=== PATIENT | male | born 1970 | race Caucasian/White ===

== ENCOUNTER 2018-09-22 15:01 | Emergency (ER) | payer OTHER, SELFPAY ==
[2018-09-22 15:03] VITALS: BP 137/86; PULSE 90; RESP 17; TEMP 37; O2SAT 98; BMI 24.1
[2018-09-22] MEDS: 0.9% Normal Saline 1,000 ML 1000 ML IV (15:49)
[2018-09-22] MEDS: Mag Hydrox/Al Hydrox/Simeth 30 ML UDC PO (15:54)
[2018-09-22 15:57] LABS: Absolute Lymphocyte Count 0.75 X10^3/ul (0.83-4.51); Absolute Neutrophil Count 3.4 X10^3/uL (2.0-7.7); Hematocrit 50.1 % (40-54); Hemoglobin 17.3 g/dl (13.0-16.5); Lymphocyte # 0.75 X10^3/ul (4.0); Lymphocyte % 15.8 % (19-41); Mean Corp Hgb Conc 34.5 g/gl (32-36); Mean Corpuscular Hgb 32.3 pg (27.0-32.0); Mean Corpuscular Volume 93.5 fL (80-94); Mean Platelet Vol. 11.4 fl (6.2-12.0); Monocyte# 0.59 X10^3/uL; Monocyte% 12.4 % (0-10); Neutrophil # 3.37 X10^3/uL (2.7-7.7); Neutrophil % 71.2 % (47-70); Platelet Count 118 K/mm3 (150-450); RBC Distribution Width CV 12.1 % (11.6-14.6); RBC Distribution Width SD 40.7 fl (35.1-43.9); Red Blood Count 5.36 M/mm3 (4.6-6.2); White Blood Count 4.7 K/mm3 (4.4-11.0)
[2018-09-22 16:02] LABS: POSITIVE COUNT NO; POSITIVE DIFFERENTIAL NO; POSITIVE MORPHOLOGY NO
[2018-09-22 16:17] LABS: ALB/GLOB Ratio 1.1 RATIO (0.9-2.4); AST(SGOT) 24 U/L (15-37); Alanine Aminotransfer ALT/SGPT 42 U/L (16-61); Albumin, Serum 3.9 g/dL (3.2-5.0); Alkaline Phosphatase 70 U/L (45-117); Anion Gap 6 (5-15); BUN 14 mg/dL (7-18); BUN/Creat Ratio 12.8 RATIO (10-20); Calcium,Total 8.4 mg/dL (8.5-10.1); Chloride 101 mmol/L (98-107); Creatinine, Serum 1.09 mg/dL (0.70-1.30); EST Glomerular Filtration Rate 77 mL/min (>60); Est Glom Filt Rate - Afr Amer 93 mL/min (>60); Estimated Creatinine Clearance 102.86 ml/min; Globulin 3.4 g/dL (2.2-4.2); Glucose 102 mg/dL (74-106); Lipase 119 U/L (73-393); Potassium 3.7 mmol/L (3.5-5.1); Protein, Total 7.3 g/dL (6.4-8.2); Sodium Level 137 mmol/L (136-145)
--- NOTE | 2018-09-22 16:36 | ED.DCSUM_ITS ---
- ER Visit Summary Date of Service: 09/22/18 Chief Complaint: Vomiting and diarrhea History of Present Illness: The patient is a 48 M with no primary care physician. He reports that his 2 children and had had vomiting and diarrhea. States that 2 days ago he began having similar symptoms. He states h e has a dull diffuse abdominal pain that began yesterday. Is 4-10 at worst on a 10 currently. Is worsened by nothing relieved by nothing. Reports is been nauseated and vomited multiple times in one episode last evening. He reports that the emesis was black likes it. However, he states that prior to this he had had Gatorade, karen daniela, pickle juice, and 2 doses of Pepto-Bismol approximate 6-8 hours earlier. States that he vomited immediately after the second dose of pickle juice. Patient reports that he has had 2 episodes of diarrhea yesterday. No blood in his stools or black tarry stools. He has had a normal bowel movement today. No dysuria or frequency. Reports he did have a fever of 102.6 degrees and chills. Finally, the patient reports that he has had hiccups for approximate the past 24 hours. States that they have stopped 3 times approximately 15-20 minutes. He googled this and has tried multiple home remedies. Patient does report that he has been camping. However, he did not drink the water there. He is not been on antibiotics recently. No possible food exposure. Does not drink well water. Patient does report a long-standing history of reflux. He reports that he stopped taking a PPI years ago due to potential side effects. He states that he takes Tums frequently. He has never had endoscopy. Physical Examination: Vitals: Stable. Afebrile. General: Well-nourished and well-developed. Head: Normocephalic atraumatic. Neck: Supple, no lymphadenopathy. No JVD. Nontender. Cardiovascular: Regular rate and rhythm. No murmurs. Respiratory: No respiratory distress. Clear to auscultation bilaterally. Abdominal: Soft, nontender, nondistended, normal bowel sounds. No guarding, rebound, or peritoneal signs. Back: Nontender. Extremities: Nontender, no edema. Skin: Normal color, no rash. Neurologic: Alert and oriented ?3. Cranial nerves II through XII are intact. Normal strength and sensation. Psych: Normal affect. Test Results: CBC is more for hemoglobin 17.3, platelets 118, 7 neutrophils 71, lymphs at 16, monocytes 12. Chem-7 more for BUN of 14 (which is normal) and calcium of 8.4. LFTs are normal. Lipase is normal. Emergency Department Course and Treatment: Patient was given a liter of normal saline. He was given a GI cocktail p.o. He has had no emesis while here. However, he continues to experience hiccups. He is given a dose of Reglan IV. He has had a slowing, but not resolution of his hiccups. He was given a dose of Pepcid p.o. Treatment Plan: Patient will be discharged on Reglan and Zofran. Instructed to follow-up with Dr. Maya in 3-5 days. Return to the emergency department for any worsening symptoms. Disposition: To home in improved and stable condition. Impression: 1. Vomiting/diarrhea. 2. Intractable hiccups. This note was generated with [employer] dictation software. It may contain incorrect words, spelling, and punctuation that were not noted in review of the chart prior to signing ED Disposition - Plan for ED Patient: Chief Complaint: Abd Pain Instructions: ED Hiccups Prescriptions: Ranitidine [Zantac] 300 mg PO DAILY #30 tablet Metoclopramide [Reglan] 10 mg PO 4X/DAY PRN #20 tablet PRN Reason: Headache Referrals: Sheng Ferrara MD [STAFF PHYSICIAN] - 3-5 Days
[2018-09-22] MEDS: Metoclopramide 10 MG/2 ML Vial IV (16:54)
[2018-09-22] MEDS: Famotidine 20 MG Tablet 40 MG PO (17:45)
[2018-09-22 17:47] VITALS: BP 133/93; PULSE 97; RESP 16; O2SAT 97
--- NOTE | 2018-09-22 17:48 | ED.RN ---
PT GIVEN WRITTEN AND VERBAL DISCHARGE INSTRUCTIONS AND HOME GOING PRESCRIPTIONS. PT VERBALIZES UNDERSTANDING AND DENIES ANY FURTHER QUESTIONS. IV D/C AND COVERED WITH 2X2 GAUZE DRESSING AND PAPER TAPE.
--- OUTSIDE RECORDS SUMMARY | 2018-11-18 02:10 | XMS RPT_ITS ---
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 73-393 U/L Normal LIPASE 119 Performed By: #### L500.4050, L501.2450 #### [facility] [address] [place], [address] PROGRESS Observed: 09/22/2018 Status: COMPLETED Source: [place] 2:38 PM [facility] REPOSITORY HNO ID: [id number] Author: John Coley ([employer]) Jay Service: (none) Author Type: Nurse Practitioner Type: Progress Notes Filed: 09/22/2018 3:03 PM Note Text: HPI/CC: Husam Madison is a 48 year old male who presents for Abdominal Pain- hematemesis x 1 this morning. + hiccups x 24 hours. Takes PPI daily with multiple times a day use if TUMs. Reports dizziness at times. Location: epigastric and generalized with radiation to back Quality: cramping Quantity: 8/10 in intensity Chronicity: Onset today , constant since Aggravating factors: none Alleviating factors: none Associated symptoms: hematochezia Gastrointestinal: No blood in stool, pain with BM, tarry stool, persistent diarrhea or constipation. Denies UTI symptoms Previously seen by GI REVIEW OF SYSTEMS: as above Reviewed relevant PMHx, PSHx, Social Hx, current medications and allergies. OBJECTIVE/PHYSICAL EXAM: BP 116/72 (BP Site: Left Arm, BP Position: Sitting, BP Cuff Size: Regular Adult) Pulse 84 Temp 37.2 ?C (99 ?F) (Temporal Artery) Resp 20 Wt 89.8 kg (198 lb) BMI 24.10 kg/m? General appearance: Well appearing, alert, well-hydrated Hydration: well hydrated Lungs: clear to auscultation Heart: normal, Regular rate and rhythm, no murmurs, clicks, or gallops. Abdomen: soft, nondistended and rounded, normal bowel sounds. Tenderness: present, moderate generalized Masses: none Organomegaly: none ASSESSMENT/PLAN: 1. Coffee ground emesis - ICD9: 578.0, ICD10: K92.0 - referral to ER for STAT labs and scope concern for active UGIB. Patient agreeable to ER. - report called to [facility] ER - needs est care visit and ER f/u. ARABELLA Dubois Observed: 09/22/2018 Status: COMPLETED Source: [place] 2:20 PM [facility] REPOSITORY Office Visit (FAMPWS) KIMMIEHUSAM Sarthak ([id number]) 1970 M Date Time Provider Department 09/22/18 2:20 PM JOHN THOMPSON (ABDIAS) FAMPWS During your visit today, we recorded the following information about you: Temperature Pulse Respiration Blood pressure 99 degrees 84/minute 20/minute 116/72 Weight 89.8 kg John Thompson APRN.CNP 09/22/2018 3:03 PM Signed HPI/CC: Husam Madison is a 48 year old male who presents for Abdominal Pain- hematemesis x 1 this morning. + hiccups x 24 hours. Takes PPI daily with multiple times a day use if TUMs. Reports dizziness at times. Location: epigastric and generalized with radiation to back Quality: cramping Quantity: 8/10 in intensity Chronicity: Onset today , constant since Aggravating factors: none Alleviating factors: none Associated symptoms: hematochezia Gastrointestinal: No blood in stool, pain with BM, tarry stool, persistent diarrhea or constipation. Denies UTI symptoms Previously seen by GI REVIEW OF SYSTEMS: as above Reviewed relevant PMHx, PSHx, Social Hx, current medications and allergies. OBJECTIVE/PHYSICAL EXAM: BP 116/72 (BP Site: Left Arm, BP Position: Sitting, BP Cuff Size: Regular Adult) Pulse 84 Temp 37.2 ?C (99 ?F) (Temporal Artery) Resp 20 Wt 89.8 kg (198 lb) BMI 24.10 kg/m? General appearance: Well appearing, alert, well-hydrated Hydration: well hydrated Lungs: clear to auscultation Heart: normal, Regular rate and rhythm, no murmurs, clicks, or gallops. Abdomen: soft, nondistended and rounded, normal bowel sounds. Tenderness: present, moderate generalized Masses: none Organomegaly: none ASSESSMENT/PLAN: 1. Coffee ground emesis - ICD9: 578.0, ICD10: K92.0 - referral to ER for STAT labs and scope concern for active UGIB. Patient agreeable to ER. - report called to [facility] ER - needs est care visit and ER f/u. John Thompson APRN.PRODUCTION SHIFT SUPERVISOR Referring Provider: SELF [[id number]] Allergies As of Date: 09/22/2018 (No Known Allergies) Date Reviewed: 09/22/2018 Reviewed by: Jackie Lee LPN - Fully Assessed Reason for Visit: Abdominal Pain [1] Primary Visit Diagnosis:Coffee ground emesis [K92.0] Prescriptions as of 09/22/2018 Sig: TUMS ORAL Take 2 tablets by mouth as ne* MINOCYCLINE 100 MG TABLET TAKE 1 TABLET BY MOUTH EVERY * TRETINOIN 0.025 % TOPICAL CRE* Apply thin layer to entire fa* MULTI VITAMIN ORAL Take by mouth once daily. CLINDAMYCIN 1 %-BENZOYL PEROX* Apply to bumps once daily Patient not taking: Reported on 02/21/2018 FAMOTIDINE 20 MG TABLET Take 20 mg by mouth once brianna* Medication notes this encounter MULTI VITAMIN ORAL >> Jackie Lee LPN 09/22/2018 2:26 PM >> JACKIE LEE LPN ThuSep 22, 2018 2:26 PM PRN Problem List As Of Date: 09/22/2018 (None) Encounter Status:Closed by JOHN THOMPSON CNP on 09/22/18 CNNURSE Observed: 08/28/2018 Status: COMPLETED Source: [place] 11:10 AM [facility] REPOSITORY Nurse Visit (CORWST) HUSAM MADISON ([id number]) 1970 M Date Time Provider Department 08/28/18 11:10 AM NURSE [facility] During your visit today, we recorded the following information about you: Aramis Stevenson Ma 08/28/2018 11:10 AM Signed 48 year old male here for INACTIVATED INFLUENZA VACCINE. [id number] Season Patient is identified by name and date of : Yes [] CONTRAINDICATIONS color enhanced section Age less than 6 months? No Allergy to eggs, chicken, chicken feathers, or chicken dander? No Allergy to thimerosal (a preservative) or formaldehyde, gelatin? No History of severe reaction to any vaccine component or a previous dose of influenza vaccination? No History of Guillain-Gulf Breeze Syndrome within 6 weeks after a previous influenza vaccine? No Patient is not moderately or severely ill? No Current temperature greater or equal to 100.4F? No History of Bone Marrow Transplant prior 6 months or solid organ transplant in the past 3 months ? No History of fainting after a prior injection or medical procedure? No- ? If patient has fainted in the past, the CDC recommends sitting or lying down for 15 minutes after the vaccination. [] VERIFICATION color enhanced section Was the answer Yes for any of the above contraindications? No contraindications present. Acceptable to proceed with vaccine. Patient/guardian agrees the above answers are true to the best of their knowledge? Yes Flu vaccine information sheet given? Yes See immunization activity [facility] for details of immunizations adminstered today. Patient age: [age] year old For The 3847-0941 Flu Season 6-35 months old: Fluzone 0.25 ml - IM (Preservative Free) 3 years of age: Fluzone 0.5 ml - IM (Preservative Free) 3 years and older: Fluzone 0.5 ml- IM-(with Preservatives) 65+ years old: 2-49 years old Fluzone High-Dose 0.5 ml - IM (Preservative Free) FLUMIST- intranasal REMEMBER: If patient is less than 9 years of age and this is the first vaccine of Influenza to be received in any flu season, they should receive a second dose in one months time. Referring Provider: SELF [200] Allergies As of Date: 08/28/2018 (No Known Allergies) Date Reviewed: 02/21/2018 [facility]ed by: [facility] Matt - Fully Assessed Reason for Visit: Imm/Inj [58] Cmt: Flu Vaccine Primary Visit Diagnosis:Need for vaccination [Z23] Order(s):INFLUENZA VACCINE QUADRIVALENT AGE 3 YRS PLUS + IM [[id number]] Order #: [id number] Prescriptions as of 08/28/2018 Sig: MINOCYCLINE 100 MG TABLET TAKE 1 TABLET BY MOUTH EVERY * TRETINOIN 0.025 % TOPICAL CRE* Apply thin layer to entire fa* CLINDAMYCIN 1 %-BENZOYL PEROX* Apply to bumps once daily Patient not taking: Reported on 02/21/2018 FAMOTIDINE 20 MG TABLET Take 20 mg by mouth once brianna* MULTI VITAMIN ORAL Take by mouth once daily. Problem List As Of Date: 08/28/2018 (None) Encounter Status:Closed by ARAMIS STEVENSON MA on 08/28/18 PROGRESS Observed: 08/28/2018 Status: COMPLETED Source: [place] 11:06 AM [facility] REPOSITORY O ID: [id number] Author: Aramis Stevenson Ma Service: (none) Author Type: (none) Type: Progress Notes Filed: 08/28/2018 11:10 AM Note Text: 48 year old male here for INACTIVATED INFLUENZA VACCINE. [id number] Season Patient is identified by name and date of : Yes [] CONTRAINDICATIONS color enhanced section Age less than 6 months? No Allergy to eggs, chicken, chicken feathers, or chicken dander? No Allergy to thimerosal (a preservative) or formaldehyde, gelatin? No History of severe reaction to any vaccine component or a previous dose of influenza vaccination? No History of Guillain-Gulf Breeze Syndrome within 6 weeks after a previous influenza vaccine? No Patient is not moderately or severely ill? No Current temperature greater or equal to 100.4F? No History of Bone Marrow Transplant prior 6 months or solid organ transplant in the past 3 months ? No History of fainting after a prior injection or medical procedure? No- ? If patient has fainted in the past, the CDC recommends sitting or lying down for 15 minutes after the vaccination. [] VERIFICATION color enhanced section Was the answer Yes for any of the above contraindications? No contraindications present. Acceptable to proceed with vaccine. Patient/guardian agrees the above answers are true to the best of their knowledge? Yes Flu vaccine information sheet given? Yes [facility]izations admin[facility]ered today. Patient age: [age] year old For The 8002-6189 Flu Season 6-35 months old: Fluzone 0.25 ml - IM (Preservative Free) 3 years of age: Fluzone 0.5 ml - IM (Preservative Free) 3 years and older: Fluzone 0.5 ml- IM-(with Preservatives) 65+ years old: 2-49 years old Fluzone High-Dose 0.5 ml - IM (Preservative Free) FLUMIST- intranasal REMEMBER: If patient is less than 9 years of age and this is the first vaccine of Influenza to be received in any flu season, they should receive a second dose in one months time. PROGRESS Observed: 02/21/2018 Status: COMPLETED Source: [place] 11:16 AM [facility] REPOSITORY HNO ID: [id number] Author: Laurie Cobb) Matt Service: (none) Author Type: Nurse Practitioner Type: Progress Notes Filed: 02/21/2018 11:42 AM Note Text: Subjective The history is provided by the patient. No welfare investigator was used. HPI Husam Madison is a 47 year old male who presents today for CC of sinus congestion and pressure This started over the past 2 weeks. He is also having nasal drainage, green. Symptoms are worsened by leaning forward. He has tried zinc, sudafed, and advil, and zyrtec. Risk factors family members have been ill. PMH sinusitis. BP 116/78 Pulse 77 Temp 36.5 ?C (97.7 ?F) (Right Tympanic) Resp 16 Wt 91.2 kg (201 lb) SpO2 96% BMI 24.47 kg/m? ALLERGIES No Known Allergies There is no problem list on file for this patient. No family history on file. Social History Marital status: Spouse name: Years of education: Number of children: Social History Main Topics Smoking status: Former Smoker Packs/day: 0.00 Years: 0.00 Smokeless tobacco: Never Used Review of Systems Constitutional: Negative. Negative for chills, fever and malaise/fatigue. HENT: Positive for congestion and sinus pain. Negative for ear pain and sore throat. Respiratory: Positive for cough. Negative for sputum production, shortness of breath and wheezing. Cardiovascular: Negative for chest pain. Musculoskeletal: Negative for myalgias. Skin: Negative for rash. Neurological: Negative for headaches. Objective Physical Exam Constitutional: He is well-developed, well-nourished, and in no distress. HENT: Head: Normocephalic and atraumatic. Right Ear: Tympanic membrane, external ear and ear canal normal. Tympanic membrane is not injected, not erythematous, not retracted and not bulging. No middle ear effusion. Left Ear: Tympanic membrane, external ear and ear canal normal. Tympanic membrane is not injected, not erythematous, not retracted and not bulging. No middle ear effusion. Nose: Mucosal edema and rhinorrhea present. Right sinus exhibits maxillary sinus tenderness and frontal sinus tenderness. Left sinus exhibits maxillary sinus tenderness and frontal sinus tenderness. Mouth/Throat: Uvula is midline and mucous membranes are normal. Posterior oropharyngeal erythema present. No oropharyngeal exudate, posterior oropharyngeal edema or tonsillar abscesses. Clear PND Eyes: Conjunctivae and EOM are normal. Pupils are equal, round, and reactive to light. Neck: Normal range of motion. Cardiovascular: Normal rate, regular rhythm and normal heart sounds. Pulmonary/Chest: Effort normal and breath sounds normal. No respiratory distress. He has no decreased breath sounds. He has no wheezes. He has no rhonchi. He has no rales. A hacking dry cough was noted during this encounter. Talking in full sentences. Handling secretions without drooling. Lips and nailbeds are pink without cyanosis. Lymphadenopathy: Head (right side): No submental, no submandibular, no tonsillar, no preauricular and no posterior auricular adenopathy present. Head (left side): No submental, no submandibular, no tonsillar, no preauricular and no posterior auricular adenopathy present. He has no cervical adenopathy. Right cervical: No posterior cervical adenopathy present. Left cervical: No posterior cervical adenopathy present. Right: No supraclavicular adenopathy present. Left: No supraclavicular adenopathy present. Skin: Skin is warm and dry. Psychiatric: Affect normal. Nursing note and vitals reviewed. ASSESSMENT/PLAN: 1. Sinobronchitis - ICD9: 473.9, 490, ICD10: J32.9, J40 - Will begin treatment with Doxycline - The patient should also be given warm salt water gargles, throat lozenges and/or OTC throat spray as needed for the first 5- 7 days of treatment. - Supportive care with plenty of fluids, rest, and analgesia prn. - Follow up in one week if symptoms persist or worsen. - -Increase fluid intake. Try to drink at least 8 glasses of non caffeinated fluids daily. --Rest as much as possible. -Do the nasal saline irrigation at least 2 x day to relieve nasal mucous and congestion: brands include Sylvester Med, Simply saline, Marinette nasal spray, or even the generic store brand one is ok. Take the entire course of antibiotics as prescribed. DO NOT stop taking it early, even if you are feeling better. -Practice good hygiene, wash hands frequently. -Monitor for signs of worsening infection: increased temperature, pain in face, ear pain or headaches or increase in nasal congestion/mucous that is not improving. -Educated patient on side effects of medication. - Tylenol (generic acetaminophen) 500 mg-2 tabs every 8 hrs. as needed for fever and aches - Ibuprofen 600 mg (3-200mg tablets) every 6 hours -Mucinex (generic is fine) 1200 mg twice daily to help with cough and to thin out mucus - DOXYCYCLINE MONOHYDRATE 100 MG CAPSULE * Seek medical care immediately, call 911, go to ER if you have chest pain, difficulty breathing, shortness of breath, inability to swallow. Diagnosis and treatment plan were discussed and questions were answered to the patient's satisfaction. Pt acknowledged understanding of concepts and follow up plan. Specific signs and symptoms that would indicate the need for higher level of care were discussed in detail warranting prompt ER evaluation. Laurie Rondon APRN.ABDIAS CNOV Observed: 02/21/2018 Status: COMPLETED Source: [place] 11:00 AM [facility] REPOSITORY Office Visit ([facility]) HUSAM MADISON ([id number]) 1970 M Date Time Provider Department 02/21/18 11:00 AM LAURIE RONDON (ABDIAS) [facility] During your visit today, we recorded the following information about you: Temperature Pulse Respiration Blood pressure 97.7 degrees 77/minute 16/minute 116/78 Weight 91.2 kg Laurie Rondon APRN.PRODUCTION SHIFT SUPERVISOR 02/21/2018 11:42 AM Signed Subjective The history is provided by the patient. No welfare investigator was used. HPI Husam Madison is a 47 year old male who presents today for CC of sinus congestion and pressure This started over the past 2 weeks. He is also having nasal drainage, green. Symptoms are worsened by leaning forward. He has tried zinc, sudafed, and advil, and zyrtec. Risk factors family members have been ill. PMH sinusitis. BP 116/78 Pulse 77 Temp 36.5 ?C (97.7 ?F) (Right Tympanic) Resp 16 Wt 91.2 kg (201 lb) SpO2 96% BMI 24.47 kg/m? ALLERGIES No Known Allergies There is no problem list on file for this patient. No family history on file. Social History Marital status: Spouse name: Years of education: Number of children: Social History Main Topics Smoking status: Former Smoker Packs/day: 0.00 Years: 0.00 Smokeless tobacco: Never Used Review of Systems Constitutional: Negative. Negative for chills, fever and malaise/fatigue. HENT: Positive for congestion and sinus pain. Negative for ear pain and sore throat. Respiratory: Positive for cough. Negative for sputum production, shortness of breath and wheezing. Cardiovascular: Negative for chest pain. Musculoskeletal: Negative for myalgias. Skin: Negative for rash. Neurological: Negative for headaches. Objective Physical Exam Constitutional: He is well-developed, well-nourished, and in no distress. HENT: Head: Normocephalic and atraumatic. Right Ear: Tympanic membrane, external ear and ear canal normal. Tympanic membrane is not injected, not erythematous, not retracted and not bulging. No middle ear effusion. Left Ear: Tympanic membrane, external ear and ear canal normal. Tympanic membrane is not injected, not erythematous, not retracted and not bulging. No middle ear effusion. Nose: Mucosal edema and rhinorrhea present. Right sinus exhibits maxillary sinus tenderness and frontal sinus tenderness. Left sinus exhibits maxillary sinus tenderness and frontal sinus tenderness. Mouth/Throat: Uvula is midline and mucous membranes are normal. Posterior oropharyngeal erythema present. No oropharyngeal exudate, posterior oropharyngeal edema or tonsillar abscesses. Clear PND Eyes: Conjunctivae and EOM are normal. Pupils are equal, round, and reactive to light. Neck: Normal range of motion. Cardiovascular: Normal rate, regular rhythm and normal heart sounds. Pulmonary/Chest: Effort normal and breath sounds normal. No respiratory distress. He has no decreased breath sounds. He has no wheezes. He has no rhonchi. He has no rales. A hacking dry cough was noted during this encounter. Talking in full sentences. Handling secretions without drooling. Lips and nailbeds are pink without cyanosis. Lymphadenopathy: Head (right side): No submental, no submandibular, no tonsillar, no preauricular and no posterior auricular adenopathy present. Head (left side): No submental, no submandibular, no tonsillar, no preauricular and no posterior auricular adenopathy present. He has no cervical adenopathy. Right cervical: No posterior cervical adenopathy present. Left cervical: No posterior cervical adenopathy present. Right: No supraclavicular adenopathy present. Left: No supraclavicular adenopathy present. Skin: Skin is warm and dry. Psychiatric: Affect normal. Nursing note and vitals reviewed. ASSESSMENT/PLAN: 1. Sinobronchitis - ICD9: 473.9, 490, ICD10: J32.9, J40 - Will begin treatment with Doxycline - The patient should also be given warm salt water gargles, throat lozenges and/or OTC throat spray as needed for the first 5-7 days of treatment. - Supportive care with plenty of fluids, rest, and analgesia prn. - Follow up in one week if symptoms persist or worsen. - -Increase fluid intake. Try to drink at least 8 glasses of non caffeinated fluids daily. --Rest as much as possible. -Do the nasal saline irrigation at least 2 x day to relieve nasal mucous and congestion: brands include Sylvester Med, Simply saline, Marinette nasal spray, or even the generic store brand one is ok. Take the entire course of antibiotics as prescribed. DO NOT stop taking it early, even if you are feeling better. -Practice good hygiene, wash hands frequently. -Monitor for signs of worsening infection: increased temperature, pain in face, ear pain or headaches or increase in nasal congestion/mucous that is not improving. -Educated patient on side effects of medication. - Tylenol (generic acetaminophen) 500 mg-2 tabs every 8 hrs. as needed for fever and aches - Ibuprofen 600 mg (3-200mg tablets) every 6 hours -Mucinex (generic is fine) 1200 mg twice daily to help with cough and to thin out mucus - DOXYCYCLINE MONOHYDRATE 100 MG CAPSULE * Seek medical care immediately, call 911, go to ER if you have chest pain, difficulty breathing, shortness of breath, inability to swallow. Diagnosis and treatment plan were discussed and questions were answered to the patient's satisfaction. Pt acknowledged understanding of concepts and follow up plan. Specific signs and symptoms that would indicate the need for higher level of care were discussed in detail warranting prompt ER evaluation. ARABELLA Bang APRN.CNP 02/21/2018 11:26 AM Signed ASSESSMENT/PLAN: 1. Sinobronchitis - ICD9: 473.9, 490, ICD10: J32.9, J40 - Will begin treatment with Doxycline - The patient should also be given warm salt water gargles, throat lozenges and/or OTC throat spray as needed for the first 5-7 days of treatment. - Supportive care with plenty of fluids, rest, and analgesia prn. - Follow up in one week if symptoms persist or worsen. - -Increase fluid intake. Try to drink at least 8 glasses of non caffeinated fluids daily. --Rest as much as possible. -Do the nasal saline irrigation at least 2 x day to relieve nasal mucous and congestion: brands include Sylvester Med, Simply saline, Marinette nasal spray, or even the generic store brand one is ok. Take the entire course of antibiotics as prescribed. DO NOT stop taking it early, even if you are feeling better. -Practice good hygiene, wash hands frequently. -Monitor for signs of worsening infection: increased temperature, pain in face, ear pain or headaches or increase in nasal congestion/mucous that is not improving. -Educated patient on side effects of medication. - Tylenol (generic acetaminophen) 500 mg-2 tabs every 8 hrs. as needed for fever and aches - Ibuprofen 600 mg (3-200mg tablets) every 6 hours -Mucinex (generic is fine) 1200 mg twice daily to help with cough and to thin out mucus - DOXYCYCLINE MONOHYDRATE 100 MG CAPSULE * Seek medical care immediately, call 911, go to ER if you have chest pain, difficulty breathing, shortness of breath, inability to swallow. Referring Provider: SELF [200] Allergies As of Date: 02/21/2018 (No Known Allergies) Date Reviewed: 02/21/2018 Reviewed by: Laurie [facility] - Fully Assessed Reason for Visit: Fever [47] Cmt: x 11 days intermittent chills Cough [28] Cmt: x 11 days cough and chest congestion Pain, Sinus [857] Cmt: x 11 days sinus pain and pressure Primary Visit Diagnosis:Sinobronchitis [J32.9, J40] Order(s):doxycycline monohydrate (MONODOX) 100 mg capsuleTake 1 capsule by mouth twice daily for 10 days.Disp: 20 capsuleRfl: 0 Prescriptions as of 02/21/2018 Sig: DOXYCYCLINE MONOHYDRATE 100 M* Take 1 capsule by mouth twice* TRETINOIN 0.025 % TOPICAL CRE* Apply thin layer to entire fa* CLINDAMYCIN 1 %-BENZOYL PEROX* Apply to bumps once daily Patient not taking: Reported on 02/21/2018 FAMOTIDINE 20 MG TABLET Take 20 mg by mouth once brianna* MULTI VITAMIN ORAL Take by mouth once daily. Problem List As Of Date: 02/21/2018 (None) Other instructions from your clinician: ASSESSMENT/PLAN: 1. Sinobronchitis - ICD9: 473.9, 490, ICD10: J32.9, J40 - Will begin treatment with Doxycline - The patient should also be given warm salt water gargles, throat lozenges and/or OTC throat spray as needed for the first 5-7 days of treatment. - Supportive care with plenty of fluids, rest, and analgesia prn. - Follow up in one week if symptoms persist or worsen. - -Increase fluid intake. Try to drink at least 8 glasses of non caffeinated fluids daily. --Rest as much as possible. -Do the nasal saline irrigation at least 2 x day to relieve nasal mucous and congestion: brands include Sylvester Med, Simply saline, [place] nasal spray, or even the generic store brand one is ok. Take the entire course of antibiotics as prescribed. DO NOT stop taking it early, even if you are feeling better. -Practice good hygiene, wash hands frequently. -Monitor for signs of worsening infection: increased temperature, pain in face, ear pain or headaches or increase in nasal congestion/mucous that is not improving. -Educated patient on side effects of medication. - Tylenol (generic acetaminophen) 500 mg-2 tabs every 8 hrs. as needed for fever and aches - Ibuprofen 600 mg (3-200mg tablets) every 6 hours -Mucinex (generic is fine) 1200 mg twice daily to help with cough and to thin out mucus - DOXYCYCLINE MONOHYDRATE 100 MG CAPSULE * Seek medical care immediately, call 911, go to ER if you have chest pain, difficulty breathing, shortness of breath, inability to swallow. Prescriptions ordered this encounter Disp Refills Start End DOXYCYCLINE MONOHYDRATE 100 MG CAPSU* 20 c* 0 02/21/2018 03/03/2018 Route: ORAL Sig: Take 1 capsule by mouth twice daily for 10 days. Medications Discontinued During This Encounter Minocycline HCl 100 mg tablet 60 t* 1 08/14/2017 02/21/2018 Sig: Take 1 tablet daily Disc: Discontinued by Patient Encounter Status:Closed by LAURIE RONDON CNP on 02/21/18 ALLERGIES ALLERGIES DATE TYPE / CODE NAME / CODE REACTION SEVERITY SOURCE 09/22/2018 Drug No Known Unknown [facility] Allergy/416 Allergies/V41360 Hospital 330453(SNOM 0388(RXNORM) Repository ED CT) Drug NO KNOWN [facility] Class/06901 ALLERGIES Main [place] 1003(SNOMED Repository CT) ENCOUNTERS ENCOUNTERS ADMIT/DISCHARGE ACCOUNT ADMITTING ENCOUNTER LOCATION SOURCE NUMBER CLASS 09/30/2018/10/01/20 [id number] Ambulatory [address] Repository 09/22/2018/09/22/20 [id number] Emergency [address] ing:ED Repository 09/22/2018/09/23/20 [id number] Ambulatory [address] [place] Repository 08/28/2018/08/30/20 [id number] Ambulatory [address] Repository 02/21/2018/02/24/20 [id number] Ambulatory [address] Repository PAYERS PAYERS ENCOUNTER GUARANTOR PAYER SUBSCRIBER SOURCE 09/22/2018 HUSAM MADISON [id number] Insurance:[place], [place] Number: Repository [id number]: [phone] [id number] [phone] () Date:[id number] [address]PC: 09/22/2018 Secondary NOT GIVENUNK [place] Insurance:SELF PAY [facility] Number: Effective Repository Date:2018-09-22
== END 2018-09-22 17:51 | disposition home or self-care (01) ==
LOC: ED 15:47
PROVIDERS: Emergency Provider Emergency Medicine
DX: R11.2 Nausea with vomiting, unspecified (principal); R19.7 Diarrhea, unspecified; R06.6 Hiccough; R50.9 Fever, unspecified; R51 Headache; R10.9 Unspecified abdominal pain; K21.9 Gastro-esophageal reflux disease without esophagitis
CPT/HCPCS: 80053; 83690; 85025; 96361; 96374; 99284; J7030